=== PATIENT | male | born 1990 | race Caucasian/White ===

== ENCOUNTER 2022-09-14 22:45 | Emergency (ER) | payer BC ==
[~2022-09-14] VITALS: Ht 188 cm; Wt 86.2 kg
[2022-09-14 23:01] VITALS: BP 122/68
[2022-09-14] MEDS ORDERED: GELATIN SPONGE,ABSORBABLE 1 SPONGE SPONGE TP ONE (23:04)
[2022-09-15] MEDS ORDERED: LIDOCAINE 1% INJ 50 ML MDV IJ ONE
[2022-09-15] MEDS ORDERED: CLINDAMYCIN HCL 150 MG CAPSULE PO ONE
[2022-09-15] MEDS ORDERED: CLINDAMYCIN HCL 150 MG CAPSULE ONE (00:01)
[2022-09-15] MEDS ORDERED: CLIN300C12 PO (00:13)
--- NOTE | 2022-09-15 00:21 | NUR ---
Patient discharged to home in stable condition. Written and verbal after care instructions given. Patient verbalizes understanding of instruction.
== END 2022-09-15 00:32 | disposition home or self-care (01) ==
LOC: ER 22:48
DX: S61.211A Laceration without foreign body of left index finger without damage to nail, initial encounter (principal); Z88.0 Allergy status to penicillin; Z88.8 Allergy status to other drugs, medicaments and biological substances; W25.XXXA Contact with sharp glass, initial encounter; Y93.89 Activity, other specified; Y92.89 Other specified places as the place of occurrence of the external cause; Y99.8 Other external cause status
CPT/HCPCS: 99283; 12002; 73130; A6403